=== PATIENT | male | born 2000 | race Caucasian/White ===

== ENCOUNTER 2024-01-30 16:05 | Emergency (ER) | payer OTHER, SELFPAY ==
[2024-01-30] MEDS ORDERED: methylPREDNISolone Sod Succ/PF 125 MG/2 ML VIAL ONE (16:29)
== END 2024-01-30 17:13 | disposition home or self-care (01) ==
LOC: BURERS 16:05
DX: T78.40XA Allergy, unspecified, initial encounter (principal)
CPT/HCPCS: 96374; J2930